=== PATIENT | male | born 1970 | race Caucasian/White ===

== ENCOUNTER 2019-05-05 12:44 | Inpatient (IN) | payer OTHER ==
[2019-05-05] MEDS ORDERED: MAGNESIUM HYDROXIDE 2,400 MG/10 ML CUP PO PRN (14:38)
[2019-05-05] MEDS ORDERED: ZIPRASIDONE 20 MG VIAL IM PRN (14:38)
[2019-05-05] MEDS ORDERED: MAG HYDROX/AL HYDROX/SIMETH 30 ML CUP PO PRN (14:38)
--- NOTE | 2019-05-05 16:28 | P.HPMEDMHU ---
History of Present Illness H&P Date: 05/05/19 Chief Complaint: MHU HPI The patient is a 49-year-old female with a past medical history of depression and previous suicide attempt that presents to the ER via EMS. Apparently the patient has had ongoing depression over the last 5 years. Today in particular the patient has been having suicidal ideation and was planning to hang himself with tie down straps. The patient apparently had made doses and had pulled pretty tight around his neck and subsequently sent a picture to his without and called EMS and the patient was subsequently brought here. The patient reports previously being on Celexa and BuSpar and has been noncompliant with his regimen prescribed by his PCP Dr. Hardy over the last 2 months. The patient denies any other medical history, denies any chest pain or shortness of breath denies nausea or vomiting denies abdominal pain constipation or diarrhea. The patient is otherwise healthy denies any history of smoking. Review of Systems Pertinent positives per HPI all other review of systems otherwise negative Past Medical History Additional Past Medical History / Comment(s): depression History of Any Multi-Drug Resistant Organisms: None Reported Past Surgical History: Hernia Repair Additional Past Surgical History / Comment(s): lump reomved from neck and thigh Past Psychological History: Depression Smoking Status: Never smoker Past Alcohol Use History: Rare Past Drug Use History: None Reported Medications and Allergies Home Medications Medication Instructions Recorded Confirmed Type No Known Home Medications 05/05/19 05/05/19 History Allergies Allergy/AdvReac Type Severity Reaction Status Date / Time Penicillins Allergy Rash/Hives Verified 05/05/19 13:40 Physical Exam Vitals: Vital Signs Temp Pulse Resp BP Pulse Ox 05/05/19 14:48 98.4 F 69 20 120/84 98 05/05/19 12:53 98.4 F 69 20 120/84 98 Intake and Output 05/05/19 05/05/19 05/05/19 06:59 14:59 22:59 Other: Weight 69.853 kg Constitutional: No acute distress, conversant, pleasant Eyes: Anicteric sclerae, moist conjunctiva, no lid-lag, PERRLA ENMT: NC/AT,Oropharynx clear, no erythema, exudates Neck:Supple, FROM, no masses, or JVD, No carotid bruits; No thyromegaly Lungs: Clear to auscultation, Clear to percussion, Normal respiratory effort, no accessory muscle use Cardiovascular: Heart regular in rate and rhythm, No murmurs, gallops, or rubs no peripheral edema Abdominal: Soft Nontender, nom distended, no guarding, no rebound or rigidity, Normoactive bowel sounds No hepatomegaly, No splenomegaly, No palpable mass No abdominal wall hernia noted Skin: Normal temperature, tone, texture, turgor, No induration No subcutaneous nodules, No rash, lesions, No ulcers Extremities:No digital cyanosis No clubbing, Pedal pulses intact and symmetrical Radial pulses intact and symmetrical Normal gait and station, No calf tenderness Psychiatric: Alert and oriented to person, place and time, flat affect, poor eye contact, soft spoken Neuro: Muscles Strength 5/5 in all 4 extremities, Sensation to light touch grossly present throughout, Cranial nerves II-XII grossly intact. No focal sensory deficits Cranial Nerve Examination - Cranial Nerves Cranial Nerve II- Optic: Intact Cranial Nerve III- Oculomotor: Intact Cranial Nerve IV- Trochlear: Intact Cranial Nerve V- Trigeminal: Intact Cranial Nerve - Abducens: Intact Cranial Nerve VII- Facial: Intact Cranial Nerve VIII- Auditory: Intact Cranial Nerve IX- Glossopharyngeal: Intact Cranial Nerve X- Vagus: Intact Cranial Nerve XI- Accessory: Intact Cranial Nerve XII- Hypoglossal: Intact Assessment and Plan (1) Depression Current Visit: Yes Status: Acute Code(s): F32.9 - MAJOR DEPRESSIVE DISORDER, SINGLE EPISODE, UNSPECIFIED SNOMED Code(s): 11888423 (2) Suicidal ideation Current Visit: Yes Status: Acute Code(s): R45.851 - SUICIDAL IDEATIONS SNOMED Code(s): 7905341 Plan: The patient is admitted to the mental health unit we'll defer to the acute inpatient psychiatry team regarding ongoing psychotropic medicinal therapy along with cognitive behavioral therapy as a patient is admitted with severe depression with suicidal ideation. Admission labs have been ordered we'll follow up on these labs, after otherwise normal plan to sign off on this patient and defer all ongoing care to the mental health unit. Appreciate opportunity to be involved in the ongoing care of this patient. For further questions please not hesitate to contact the sound inpatient team.
[2019-05-05] MEDS: LORazepam 1 MG TAB PO PRN (19:59)
[2019-05-05] MEDS: ACETAMINOPHEN TAB 325 MG TAB PO PRN (20:00)
[2019-05-06] MEDS: ACETAMINOPHEN TAB 325 MG TAB PO PRN ×2 (08:34→20:34)
--- NOTE | 2019-05-06 10:53 | P.HP ---
Psychiatric H&P - . History & Physical: Allergies Allergy/AdvReac Type Severity Reaction Status Date / Time Penicillins Allergy Unknown Rash/Hives Verified 05/06/19 06:24 Vital Signs Temp 98.2 F 05/06/19 06:34 Pulse 69 05/06/19 06:34 Resp 16 05/06/19 06:34 BP 103/68 05/06/19 06:34 Pulse Ox 100 05/05/19 16:23 Intake & Output 05/05/19 05/06/19 05/06/19 18:59 06:59 18:59 Weight 69.853 kg 05/06/19 10:43 IDENTIFYING DATA: This patient is a 49-year-old male who was admitted to the mental health unit through the emergency room for suicidal ideation. HPI: The patient presented as he was brought by the police with acute suicidal ideation. He states that he had 8 high strap around his neck and took a picture of this and sent it to his . He states his [id number] had come home and saw him and called for help. The patient had are he left in his vehicle but the police stopped him and croswell and brought him to the hospital from there. He indicates his mood is depressed. He states "I've been trying to hang myself since 89". He endorses hopelessness feelings. Sleep has been decreased energy is low appetite is been variable. He endorses crying spells. He states over the years approximately 18 times he has sent his a picture of himself with at high strap around his neck. He states that he's been depressed for the last 5 years since the of his grandfather and those feelings have been intensified over the last year since the of his father. He indicates that they were close and his father due to a complication while having back surgery. He indicates having some anxiety symptoms but no panic attacks he is stressed by difficulty in family relationships. He states his just mentioned wanting to get a divorce 1-2 days ago. He reports no history of hypomanic or manic episodes he is endorsing no symptoms of psychosis. He does have firearms at home that he will frequently use for target shooting PAST PSYCHIATRIC HISTORY: Is his first inpatient psychiatric admission he states he's had 20 suicide attempts with the idea of hanging himself. It seems that most of these were episodes of gesturing rather than actual attempts. 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 He no longer works with a therapist. Up until 3 months ago he was on BuSpar and Celexa dosages unknown. He took those for approximately one year and notes little benefit. He had also been on Prozac and Effexor in the past. PMH: None reported ALLERGIES: Penicillin MEDICATIONS: None CHEMICAL DEPENDENCY HISTORY: He reports having 2 drinks every 3 months, no use of marijuana or illicit drugs, he's never been placed in residential treatment for chemical dependency reasons FAMILY PSYCHIATRIC HISTORY: His son has anxiety and is prescribed a medication that the patient is unaware of what that is, no suicides in the family FAMILY CHEMICAL DEPENDENCY HISTORY: None reported SOCIAL HISTORY: The patient is 49 years old he has been for approximately 12 years. He has 2 children an 11-year-old son and a 10-year-old daughter. An 18 year-old stepson lives with them as well. 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 He graduated high school he did participate in a special education curriculum. No history of service. He has 1 brother. He is originally from the [facility]. As noted he lost his father 1 year ago and lost his grandfather 5 years ago. He reports he stressed by his grandmother being in an extended care facility and not doing well at this time. Legal history none reported. Abuse history none reported MENTAL STATUS EXAM: The patient is a male appearing his stated age. He is dressed in his own clothing which is dirty and torn and is likely work attire. He is wearing eyeglasses. He is cooperative and easily directable. He reports a depressed mood with hopelessness thoughts and continued suicidal ideation. He states he'll typically think of pain himself when there is an argument or he feels overwhelmed. He is reporting no thoughts of harming others. No homicidal ideation intent or plan. He reports no auditory or visual hallucinations or any specific delusions. He demonstrates no objective evidence of psychosis. He demonstrates no tangential thinking loose associations or flight of ideas. He does not appear hypomanic or manic. He maintains a bland affect. He demonstrates no verbal or physical aggressiveness he demonstrates no involuntary repetitive movements. He is oriented to person place and date. He is able to name the days of the week backwards. STRENGTHS/WEAKNESSES: Strengths: Housing, employment weaknesses: Marital strain, continued grief, poor coping skills INTELLECTUAL FUNCTIONING: Likely below average IMPRESSIONS: [] 1. Major depressive disorder recurrent severe without psychosis PLAN: The patient has been admitted to the mental health unit voluntarily. We reviewed his presenting symptoms and treatment options. We decided to initiate Zoloft 50 mg daily for depressive and anxiety symptoms. We may titrate the dose further during the course of the hospitalization. He will be seen by internal medicine for routine history and physical exam. Social work will meet with the patient to complete a psychosocial assessment and begin discharge planning. We will involve his in treatment and discharge planning as he will allow. He is instructed to participate fully in the milieu and we will monitor him for safety. We will consider augmenting the Zoloft with another medication if needed.
[2019-05-06 11:12] LABS: Basophils # (A) 0.1 k/uL (0-0.2); Basophils % (A) 1 %; Eosinophils # (A) 0.1 k/uL (0-0.7); Eosinophils % (A) 2 %; HCT 45.3 % (39.0-53.0); HGB 15.4 gm/dL (13.0-17.5); Lymphocytes # (A) 1.5 k/uL (1.0-4.8); Lymphocytes % (A) 29 %; MCH 30.6 pg (25.0-35.0); MCHC 33.9 g/dL (31.0-37.0); MCV 90.2 fL (80.0-100.0); Mean Platelet Volume 6.7; Monocytes # (A) 0.2 k/uL (0-1.0); Monocytes % (A) 4 %; Neutrophils # (A) 3.3 k/uL (1.3-7.7); Neutrophils % (A) 63 %; Platelet Count 288 k/uL (150-450); RBC 5.02 m/uL (4.30-5.90); RDW 12.9 % (11.5-15.5); WBC 5.2 k/uL (3.8-10.6)
[2019-05-06 11:23] LABS: Albumin 4.6 g/dL (3.5-5.0); Bilirubin, Delta 0.1 mg/dL (0.0-0.2); Bilirubin,Unconjugated 0.9 mg/dL (0.0-1.1); Calcium 9.8 mg/dL (8.4-10.2); Potassium 4.6 mmol/L (3.5-5.1); Total Protein 7.7 g/dL (6.3-8.2)
[2019-05-06] MEDS: SERTRALINE 50 MG TAB PO SCH (11:53)
[2019-05-06 19:06] LABS: Hemoglobin A1C 5.2 % (4.0-6.0)
[2019-05-06] MEDS: LORazepam 1 MG TAB PO PRN (20:38)
[2019-05-07] MEDS: SERTRALINE 50 MG TAB PO SCH (08:38)
--- NOTE | 2019-05-07 10:18 | P.PN ---
Progress Note - Text Interval history: The patient is found in group he follows me to an interview room. He continues to endorse a depressed mood he has hopeless thoughts. He states he had a brief conversation with his and she informed him that she plans to divorce him. He was unable to talk to his children he states they hung up on him. He did speak to his [id number]. We reviewed his psychotropic medications questions were answered. He indicates he slept okay staff report he slept 6 hours. Appetite is been decreased. He states he's been attending most groups but did sleep through some. Mental status exam: The patient is alert he has a disheveled appearance he is dressed in the same clothing is yesterday. Eye contact is appropriate speech is mainly responsive to questions asked. He endorses a depressed mood his affect is dysphoric. He reports ongoing hopelessness thinking and suicidal thoughts. He reports no symptoms of psychosis there is no observed evidence of psychosis. He demonstrates no tangential thinking loose associations or flight of ideas. Insight and judgment limited. He demonstrates no verbal or physical a ggressiveness. Plan: The patient will continue on the Zoloft. We will plan on titrating dose further. We will monitor for need of augmenting the Zoloft with another medication such as Wellbutrin or Abilify. He is encouraged to think about who will support him through this process especially if a divorce will be initiated. He is encouraged to attend all groups. We will monitor him for safety. Vital signs reviewed.
[2019-05-07] MEDS: LORazepam 1 MG TAB PO PRN (22:30)
[2019-05-08] MEDS: SERTRALINE 50 MG TAB PO SCH (08:24)
[2019-05-08] MEDS ORDERED: SERTRALINE 50 MG TAB PO STA (12:39)
[2019-05-08] MEDS: OLANZapine 5 MG TAB PO SCH ×3 (12:57→21:06)
--- NOTE | 2019-05-08 22:05 | PN ---
PROGRESS NOTE DATE OF SERVICE: 05/12/2019 CHIEF COMPLAINT: The patient was depressed. He made a suicide gesture and sent a picture to his with a strap wrapped around his neck. INTERVAL HISTORY: The patient has been doing fair. He had a quiet evening last night. He generally keeps to himself. He comes out in the day area. He will interact a little with others. He slept fair last night. Today he has been up. He continues to report that his mood is down though he says overall it seems a little bit better. He still will have thoughts of suicide. He has had long-term issues with thoughts of killing himself. He apparently has sent his numerous pictures over the years with a strap around his neck, saying that he was going to kill himself. He noted stress issues including that his grandfather had and then more recently his father . He notes that a number of years back he was having problems at work with anger issues. He was referred to a stress management group about 8 years ago and said it was very helpful for him. He has been in some counseling through [facility]. He notes that while he continues to have thoughts about suicide, he says if he keeps himself distracted by doing some tabletop activities or interacting some with others that he can seem to quiet those thoughts. He says that while they continue he notes that he is having less problems with those kind of intrusive thoughts that he had been having before. He says he still feels down in his mood, though thinks that medications are helping. He tolerates his psychotropic medications. MENTAL STATUS: Patient gave fair eye contact. Psychomotor activity was somewhat restless. He answered questions with brief responses. His thoughts were clear. He did not say a lot. He was not spontaneous or interactive. His affect was flat, his mood depressed. He seemed moderately distressed. It was difficult to assess whether or not there is some underlying thought disorder. Cognition was clear. He was oriented and alert. He was ambulatory with normal gait and strength. There was no tremor, abnormal movements or rigidity. ASSESSMENT: I will continue the current diagnosis. I will increase the patient's Zoloft from 50 mg a day up to 100 mg a day. He has had no problems with the start of Zoloft. He has had significant long-term problems with depression and it likely will be critical to titrate up on antidepressants to doses that may have a reasonable chance of benefitting him. In addition, I will start the patient on Zyprexa 5 mg 3 times a day. The aim of Zyprexa is to help reduce physiologic stress response relating to some of the anxiety issues he has as well as the intrusive thoughts relating to suicide. There is some suggestion in how he describes aspects of his history that there may be consideration for delusions relating to his depression. We will continue to focus on stabilization and discharge planning. MMODL / IJN: [id number] /
[2019-05-09] MEDS: OLANZapine 5 MG TAB PO SCH ×3 (07:55→21:03)
[2019-05-09] MEDS: SERTRALINE 100 MG TAB PO SCH (07:55)
--- NOTE | 2019-05-09 23:24 | PN ---
PROGRESS NOTE DATE OF SERVICE: 05/09/2019. CHIEF COMPLAINT: The patient was depressed. He made a suicide gesture and sent a picture to his with a strap wrapped around his neck. INTERVAL HISTORY: Patient has been doing fair. He had a quiet evening last night. He tends to keep to himself. He will interact a little with others. It was documented he slept 6.5 hours last night. Today he has been up. He will come out in the day area some. He has a quiet manner. He has been attending some groups though not others. He seems to be fairly comfortable when he is in a group, though he is soft-spoken. It is noted that he has not been making contact with family. He says he has tried to call his children, though there is no answer at the phone. He has not called his because he feels that she is not going to talk to him. He did say that he would be okay with Social Work calling his to possibly set up a family meeting. It is noted that he has had long-term problems with depression. He tolerates his psychotropic medications. MENTAL STATUS: Patient gave fair eye contact. Psychomotor activity was slowed. Speech was monotone and soft. He answered questions with brief responses. He did not say a lot. His affect was flat. His mood depressed. He was moderately distressed. There was no indication of thought disorder. ASSESSMENT: I will continue the current diagnosis and treatment plan. I will continue psychotropic medications the same. Patient does indicate that he seems to be doing somewhat better, though his progress is limited. He would consider a family meeting with his as noted. We discussed discharge planning issues. I discussed with the patient that it would be critical for him to get involved in some individual psychotherapy, though in addition to set up follow up with a psychiatrist rather than a primary care doctor. This would be particularly important given the problems he has had with depression over the years. We will continue to focus on stabilization and discharge planning. MMODL / IJN: [id number] /
[2019-05-10] MEDS: OLANZapine 5 MG TAB PO SCH ×2 (08:16→16:40)
[2019-05-10] MEDS: SERTRALINE 100 MG TAB PO SCH (08:16)
--- NOTE | 2019-05-10 18:37 | PN ---
PROGRESS NOTE DATE OF SERVICE: 05/10/2019 CHIEF COMPLAINT: The patient was depressed. He made a suicide gesture and sent a picture to his with a strap wrapped around his neck. INTERVAL HISTORY: The patient has been doing fair. He had a quiet evening last night. He continues to have a fairly quiet manner. He said he slept well last night. Today he has been up. He comes out in the day area. He will wander around the unit. He does not interact too much with others, though he seems to be comfortable in the milieu, He will attend groups. Mostly he is quiet. He is described as attentive, initiates with peers and is verbally appropriate in his interaction. The patient says his mood is better today. He has a better outlook. He apparently had a telephone conversation with his . He said basically the response he got from his is that she is pursuing divorce and that he can make whatever decisions he needs to on his own. Both the social media community manager and myself have had calls to his just from the standpoint of getting some possible input in regards to discharge planning. The understanding is that he will be returning home. It would be helpful to get some input, given that there are children in the house and there would likely need to be some interaction between the two, even if divorce is within the plan. The patient reports that he tolerates his psychotropic medications. MENTAL STATUS: The patient sat without restlessness. Eye contact was fairly good. Psychomotor activity was slowed. Speech was monotone and soft. He answered questions with brief responses. He did not say a lot. His affect was blunted. His mood was quiet. He did not appear to be significantly distressed. He was just a little more responsive in the interview than he has been. There was no indication of thought disorder. Cognition was clear. ASSESSMENT: I will continue the current diagnosis and treatment plan. I reviewed medication issues with the patient. I will increase his Zoloft to 150 mg a day. The indication for this is his long-standing struggle with depression and suicidality. If he tolerates the Zoloft, the best option would be to try to maximize dose and potentially maximize benefits he gets from the medication. I also discussed issues with Zyprexa. We talked about metabolic concerns. Also I will start switching his Zyprexa so that we could shift most of his medicine to bedtime in order to simplify his medication regimen. We will aim towards discharge by middle of the week. MMMONA / DHIRAJN: [id number] /
[2019-05-10] MEDS: OLANZapine 10 MG TAB PO SCH (21:07)
[2019-05-11] MEDS: OLANZapine 10 MG TAB PO SCH (08:28)
[2019-05-11] MEDS: SERTRALINE 50 MG TAB PO SCH (08:28)
--- NOTE | 2019-05-11 13:13 | PN ---
PROGRESS NOTE DATE OF SERVICE: 05/11/2019. CHIEF COMPLAINT: The patient was depressed. He made a suicide gesture and sent a picture to his with a strap wrapped around his neck. INTERVAL HISTORY: Patient has been doing fair. He says that overall things are better for him. He had a quiet evening last night. He comes out in the day area. Often he will be in one of the lounges. He does not interact too much with others, though generally seems comfortable in the milieu, He slept fairly well last night. Today he has been up. He has been attending groups. He mostly is quiet in groups. He is appropriate in his interactions in groups. The patient says that his mood is better. He talked about hoping to get back to work on as he has talked with his boss and there are some important tasks that they are awaiting for on him. He says that he has talked to his oldest stepson, though the stepson has not had much contact with mother because of the son's working schedule; at home including his , his 2 stepsons, ages 18 and 21 and 2 children ages 8 and 11. The patient says that he feels that he can communicate adequately with his , even though there are questions as to what is happening in their marriage. had made an indication that she was filing for divorce, though the patient has not heard anything more than that. The patient says that the 2 of them do not argue much and that if they have disagreements, he just tends to walk away. He feels he should be able to communicate with his if there are issues to address. He tolerates his psychotropic medications. MENTAL STATUS: Patient gave fairly good eye contact. He was a little slowed in his movements. He spoke with a soft voice, somewhat monotone. He answered questions appropriately. His thoughts were clear, coherent, and goal directed. His affect was blunted. His mood quiet. He did seem to show a little more emotional response in the interview compared to previous days. He did not appear to be significantly distressed. There was no indication of thought disorder. ASSESSMENT: I will continue the current diagnosis and treatment plan. I will continue psychotropic medications the same. We discussed discharge planning issues. I reviewed his medications in regards to having increase both his Zoloft and his Zyprexa. We will continue to focus on stabilization and discharge planning. MMODL / IJN: [id number] /
[2019-05-11] MEDS ORDERED: PALIPERIDONE 6 MG TAB.ER.24 PO SCH (21:00)
[2019-05-12] MEDS: SERTRALINE 50 MG TAB PO SCH (07:48)
--- NOTE | 2019-05-12 12:34 | PN ---
PROGRESS NOTE DATE OF SERVICE: 05/12/2019 CHIEF COMPLAINT: The patient was depressed. He made a suicide gesture and sent a picture to his with a strap wrapped around his neck. INTERVAL HISTORY: Patient has been doing fair. He had a quiet evening last night. Overall, he continues to do about the same where he will come out in the day area. Typically he sits quietly in rooms. He does not interact too much with others. He does pay attention to things going on around him. He said he slept fairly well last night today he has been up. He comes out in the day area. He will attend groups. He tends to mostly be quiet in groups. It is noted that I had a telephone conversation with his yesterday afternoon. He noted that she anticipates filing for divorce, though it is not clear it is 100% set. She discussed some of the issues that she has had with the patient. She says over the last 5 years he struggled with depression. He has not been consistent with taking his medications. He seems to do better for short period time than when he goes off the medication things get worse. The patient himself says that he acknowledges he probably does not take his medications consistently and then will forget to get refills and then is off medications altogether. The patient's said that he tends to be very much focused on himself and will tend to hound her about one issue or another. He does not respond very well when the two of them try to have conversations to address issues. He can be angry and lash out. He may have trouble with spending sprees. When I reviewed these issues with the patient, he agreed with all of it. We talked about the possibility of a family meeting on Friday. The patient's said that she could possibly do that, though the one hang up would be getting a pulper operator. We discussed that whether they divorce or not it might be critical for them to have some kind of counseling to be able to communicate better especially around children. I reviewed these issues with the patient and he was willing to have a family meeting as well. The patient tolerates his psychotropic medications. MENTAL STATUS: He gave fair eye contact. Psychomotor activity was slowed. Speech was monotone. He answered questions with brief responses. He does not say much. He did show a little insight about some of the issues that I discussed with him that was a reflection of what his said. His affect was constricted. His mood reserved. He seemed somewhat distressed. There was no indication of thought disorder. Cognition was clear. ASSESSMENT: I will continue the current diagnosis and treatment plan. I will continue the patient on oral Abilify. He will get a dose tonight and tomorrow night then if he tolerates Abilify, I would recommend starting Abilify Maintena. I reviewed medication issues with the patient. I discussed the plan regarding the long-acting injectable which would be that it may augment his antidepressant plus being on the long-acting injectable he may have more stability in his mood as well as in his general function so that he could be more consistent in taking his Zoloft as well. The patient talked about the best option for Zoloft would be to take it in his tool kit to work and take it at noon, which would be the time he could be the most consistent in remembering it. I encouraged him to get a medication fuad for his phone also to help. We talked about the benefits of his getting a daily shoe planner so that he and his both could work on organizing their daily life. We talked about 2 banking accounts so that one account could be specific for just bills so that he is less inclined to get into the family money and then spend it irrationally. At this point, the aim will be to set up a family meeting on Friday and use that as a time to prepare for discharge. RENETTA / SAMIR: [id number] /
[2019-05-13] MEDS: SERTRALINE 50 MG TAB PO SCH (08:14)
--- NOTE | 2019-05-13 10:30 | P.PN ---
Progress Note - Text Interval history: The patient is found in group he follows me to an interview room. He indicates that his mood is improving. He is hopeful that his will not want to get a divorce. We reviewed his psychotropic medications. His Zoloft is been titrated he was started on Abilify and titrated to 20 mg. We discussed these medications in some detail. He states that his sleep has been adequate appetite is good. He is feeling more hopeful. He has been attending groups. Mental status exam: The patient is alert he is dressed in his own clothing hygiene grooming adequate. Speech is fluent spontaneous nonpressured. Affect is brighter. He indicates mood is improving. He feels safe in the hospital is reporting no acute suicidal ideation intent or plan. He is reporting no homicidal ideation intent or plan. He is demonstrating no tangential thinking loose associations or flight of ideas. He does not appear hypomanic or manic. He demonstrates no verbal or physical aggressiveness. He is oriented to person place and date. He is beginning to demonstrate future oriented thinking although he is greatly concerned about the status of his marriage. Plan: The patient will continue on his current psychotropic medications. I will reduce the dose of that Abilify to 10 mg daily. For our purposes the Abilify is being used as an augmentation strategy for depression. Continue Zoloft as written. We will monitor him for safety. We will discuss his progress during treatment team meeting. Anticipate discharge in the next 1-2 days. Vital signs reviewed.
[2019-05-14 06:56] VITALS: BP 130/84; PULSE 72; RESP 14; TEMP 98.9
[2019-05-14] MEDS: SERTRALINE 50 MG TAB PO SCH (08:20)
[2019-05-14] MEDS ORDERED: ARIPiprazole 10 MG TAB PO SCH (09:00)
--- NOTE | 2019-05-14 10:22 | P.DS ---
Providers Date of admission: 05/05/19 14:19 Expected date of discharge: 05/14/19 Attending physician: Erlin Thapa Consults: 05/05/19 14:38 Consult Physician Routine Consulting Provider: Timothy Cyr Consult Reason/Comments: H & P and medical care Do you want consulting provider notified?: Yes Primary care physician: Shun Hardy - Discharge Diagnosis(es) (1) Major depressive disorder, recurrent severe without psychotic features Current Visit: Yes Status: Acute Priority: High Hospital Course: Brief summary of admission note: This patient is a 49-year-old male who was admitted to the mental health unit through the emergency room for s uicidal ideation. The patient presented with police as he was reported to have acute suicidal ideation. He had a tiny strap around his neck and took a picture and sent it to his . Apparently another family member had come home and called for help. He had left in his vehicle before police arrived but they found him and transported him to the hospital. The patient reported feeling hopeless he described low energy and low appetite poor interest in activities. He endorsed crying spells. He reported feeling significantly depressed over the last year since the of his father. He states that his marriage has been deteriorating and his has informed him she wants a divorce. For full detail please refer to my psychiatric evaluation dated 05/06/2019. Summary of hospital course: The patient was admitted to the mental health unit voluntarily. We reviewed his presenting symptoms and treatment options. Zoloft was initiated at 50 mg daily. In my absence Dr. Reagan increase the Zoloft 150 mg daily and Abilify was added which was titrated to 20 mg daily. The patient was seen by internal medicine for routine history and physical exam. He did participate in groups he was cooperative. He reported a progressive improvement of symptoms while here. His brother will be participating in a phone support meeting this afternoon prior to discharge. Upon my return we continued his medication but determined that he does not require 20 mg of Abilify given his diagnosis. He has spoken with a friend who will help him maintain compliance with medication each morning. The patient plans on staying with his uncle at least temporarily upon discharge. He describes spontaneous future oriented thinking. Mental status exam: The patient is alert he is dressed in his own clothing hygiene grooming adequate. He reports his mood is improved. Affect is brighter and is congruent to reported mood. He is reporting no suicidal ideation intent or plan. He is reporting no homicidal ideation intent or plan. He is reporting no auditory or visual hallucinations or any specific delusions. He demonstrates no tangential thinking loose associations or flight of ideas. He does not a ppear hypomanic or manic. He demonstrates no verbal or physical aggressiveness he demonstrates no involuntary repetitive movements. Insight and judgment have improved. He remains oriented to person place and date. Impressions 1. Major depressive disorder recurrent severe without psychosis Plan: The patient will be discharged today following his support meeting via phone with his brother. Social work will arrange his outpatient mental health follow-up. The patient will continue Zoloft 150 mg daily and Abilify 5 mg daily. He is instructed to continue abstaining from any use of alcohol m arijuana or illicit drugs. At this time there is no imminent safety risk is appropriate for transition to outpatient care. He is instructed to return to the hospital with any acute safety concerns. Patient Condition at Discharge: Stable Plan - Discharge Summary Discharge Rx Participant: No New Discharge Prescriptions: New ARIPiprazole [Abilify] 5 mg PO DAILY #30 tab Sertraline [Zoloft] 150 mg PO DAILY #45 tab Discharge Medication List ARIPiprazole [Abilify] 5 mg PO DAILY #30 tab 05/14/19 [Rx] Sertraline [Zoloft] 150 mg PO DAILY #45 tab 05/14/19 [Rx] Follow up Appointment(s)/Referral(s): Joseph Gamboa [Other] - 05/20/19 12:20 pm (Dr Mendez please arrive 30 minutes prior to appointment ) Shun Hardy MD [Primary Care Provider] - 1 Week Patient Instructions/Handouts: Depression (DC), Suicide Prevention (DC) Activity/Diet/Wound Care/Special Instructions: Activity and diet as tolerated. Avoid the use of street drugs and alcohol. Take all medications as prescribed. When you are in need of refills on your medications please contact your medical provider and/or outpatient psychiatrist to have this done. Please go to scheduled outpatient appointment for aftercare treatment. If symptoms return or become worse, call the crisis line at and/or go to the nearest emergency room for evaluation.
[2019-05-15] MEDS ORDERED: ARIPiprazole 5 MG TAB PO SCH (09:00)
== END 2019-05-14 13:12 | disposition home or self-care (01) | DRG 885 ==
LOC: EC 12:44 → 3MHU 14:19
PROVIDERS: ADMIT Psychiatry & Neurology Psychiatry; ATTEND Psychiatry & Neurology Psychiatry
DX: F33.2 Major depressive disorder, recurrent severe without psychotic features (principal); R45.851 Suicidal ideations; F41.9 Anxiety disorder, unspecified; Z79.899 Other long term (current) drug therapy; Z88.0 Allergy status to penicillin
CPT/HCPCS: 80053; 80061; 82075; 82248; 83036; 84443; 85025